=== PATIENT | female | born 1945 | race African-American/Black ===

== ENCOUNTER 2017-06-15 11:35 | Emergency (ER) | payer MEDICARE, MEDICAID ==
--- NOTE | 2017-06-15 13:23 | ULT ---
RIGHT LOWER EXTREMITY VENOUS DOPPLER WITH SPECTRAL ANALYSIS AND COLOR FLOW EVALUATION: DATE: 06/15/17. History Medial right leg pain. FINDINGS: Gonzalez scale, color flow, Doppler evaluation, and spectral analysis of the right lower extremity venous structures is performed with 2D imaging. The right lower extremity, common femoral, superficial fem oral, popliteal, posterior tibial, most proximal greater saphenous, and proximal profunda femoral vei ns are imaged. There is decreased lumen compressibility and absence of flow within the right lower extremity greater saphenous vein consistent with occlusive thrombus in the right lower extremity greater saphenous vei n which extends from the level of the mid calf to the saphenofemoral vein junction. There is normal lumen compressibility, flow, and augmentation in the visualized deep venous structure s of the right lower extremity. IMPRESSION: 1. Occlusive thrombus involving the right lower extremity greater saphenous vein which is a superfic ial vein, and the thrombus extends from the level of the mid calf to the saphenofemoral vein junction . 2. No evidence of a deep vein thrombosis involving the right lower extremity deep venous structures. 3. The above findings were discussed with Dr. Stafford in the emergency department on 06/15/17 at 1232 hours. CODE CR POS: [facility]
== END 2017-06-15 13:17 | disposition home or self-care (01) ==
LOC: ERS 11:35
DX: I82.811 Embolism and thrombosis of superficial veins of right lower extremity (principal); T16.2XXA Foreign body in left ear, initial encounter; I25.10 Atherosclerotic heart disease of native coronary artery without angina pectoris; I42.9 Cardiomyopathy, unspecified; I49.9 Cardiac arrhythmia, unspecified; E66.9 Obesity, unspecified; M19.90 Unspecified osteoarthritis, unspecified site; K21.9 Gastro-esophageal reflux disease without esophagitis; E78.5 Hyperlipidemia, unspecified; I10 Essential (primary) hypertension; F41.9 Anxiety disorder, unspecified
CPT/HCPCS: 69200

== ENCOUNTER 2017-06-24 08:42 | Outpatient (CLI) | payer MEDICARE, MEDICAID ==
--- NOTE | 2017-06-24 10:53 | ULT ---
DOPPLER ARTERIAL EVALUATIONNN OF LOWER EXTREMITIES: INDICATION: Leg pain. FINDINGS: A triphasic-appearing waveform is seen in the common femoral arteries through the level of popliteal arteries. Biphasic-appearing waveforms are seen within the foreleg of the vessel such as the posteri or tibialis bilaterally. Biphasic-appearing waveforms are also seen within the left anterior tibial artery and dorsalis pedis arteries bilaterally. Triphasic waveform is seen within the right anterior tibial artery. Velocity measurements are within normal limits. IMPRESSION: Mild atherosclerotic disease involving the foreleg vascular bilaterally, left greater than right. No hemodynamically significant stenosis demonstrated. POS: [facility]
== END 2017-06-24 08:43 | disposition home or self-care (01) ==
LOC: ULT 08:42
PROVIDERS: ATTEND Nurse Practitioner Family
DX: G25.81 Restless legs syndrome (principal); E11.65 Type 2 diabetes mellitus with hyperglycemia; G62.9 Polyneuropathy, unspecified; M79.7 Fibromyalgia; R51 Headache; R42 Dizziness and giddiness; H40.223 Chronic angle-closure glaucoma, bilateral; I10 Essential (primary) hypertension; K21.0 Gastro-esophageal reflux disease with esophagitis; R76.8 Other specified abnormal immunological findings in serum; E78.2 Mixed hyperlipidemia; M1A.09X0 Idiopathic chronic gout, multiple sites, without tophus (tophi); I70.203 Unspecified atherosclerosis of native arteries of extremities, bilateral legs
CPT/HCPCS: 93923

== ENCOUNTER 2017-10-01 10:12 | Outpatient (CLI) | payer MEDICARE, OTHER ==
--- NOTE | 2017-10-01 10:27 | RAD ---
CHEST TWO VIEWS: History: Pre op. Comparison: 09-12-16 FINDINGS: The heart size is borderline enlarged. Aorta is tortuous. There are atherosclerotic changes. Lungs ar e clear of infiltrates. There is minimal scoliotic change of the spine. IMPRESSION: Borderline to minimal cardiomegaly. No active intrathoracic disease. Stable chest. POS: [facility]
== END 2017-10-01 10:13 | disposition home or self-care (01) ==
LOC: RAD-FRANK 10:12
PROVIDERS: ATTEND Nurse Practitioner Family
DX: Z01.818 Encounter for other preprocedural examination (principal); I82.811 Embolism and thrombosis of superficial veins of right lower extremity; E11.65 Type 2 diabetes mellitus with hyperglycemia; I10 Essential (primary) hypertension
CPT/HCPCS: 71046

== ENCOUNTER 2017-10-05 09:53 | Outpatient (CLI) | payer MEDICARE, OTHER ==
--- NOTE | 2017-10-05 11:45 | RAD ---
LUMBAR SPINE THREE VIEWS: History: Spondylolisthesis. FINDINGS/IMPRESSION: Lateral views of the lumbar spine in flexion, extension, and neutral positions demonstrate grade I an terolisthesis of L4 over L5 without changing position on flexion or extension. POS: [facility]
== END 2017-10-05 09:54 | disposition home or self-care (01) ==
LOC: RAD 09:53
PROVIDERS: ATTEND Specialist
DX: M43.16 Spondylolisthesis, lumbar region (principal)
CPT/HCPCS: 72100

== ENCOUNTER 2017-12-17 12:26 | Inpatient (IN) | payer MEDICARE, MEDICAID ==
[2017-12-17 13:08] LABS: #Eosinphils 0.5 thou/uL (0.0-0.7); #Lymphocytes 2.3 thou/uL (1.20-3.40); #Monocytes 0.7 thou/uL (0.11-0.59); #Neutrophils 6.4 thou/uL (1.40-6.50); %Basophils 0.1 % (0.0-1.0); %Eosinophils 4.9 % (0.0-10.0); %Lymphocytes 23.2 % (21.0-51.0); %Monocytes 6.6 % (0.0-10.0); %Neutrophils 65.1 % (42.0-75.0); Hemoglobin 7.5 g/dL (12.0-16.0); Mean Corpuscular HGB CONC 30.2 g/dL (32.0-36.0); Mean Corpuscular Hemoglobin 23.4 pg (27.0-31.0); Mean Corpuscular Volume 77.5 fl (81.0-99.0); Mean Platelet Volume 7.9 fL (7.4-10.4); Platelet Count 486 thou/uL (130-400); RBC Distribution Width 19.7 % (11.5-14.5); White Blood Cell (WBC) Count 9.8 thou/uL (4.8-10.8)
[2017-12-17 13:40] LABS: Iron 32 ug/dL (50-170); Iron Binding Capacity, Total 391 mcg/dL (265-497)
[2017-12-17 13:43] LABS: ALT (SGPT) 8 U/L (8-55); AST (SGOT) 14 U/L (5-34); Albumin 3.6 g/dL (3.4-4.8); Alkaline Phosphatase 119 U/L (40-150); Anion Gap 13 mmol/L (10-20); BUN (Urea Nitrogen) 18 mg/dL (9.8-20.1); Bilirubin, Total 0.3 mg/dL (0.2-1.2); Calc. Creatinine Clearance 0 mL/min (70-130); Calcium 9.7 mg/dL (7.8-10.44); Carbon Dioxide 24 mmol/L (23-31); Chloride 103 mmol/L (98-107); Estimated GFR-MDRD 47; Glucose 114 mg/dL (83-110); Potassium 3.9 mmol/L (3.5-5.1); Protein, Total 7.6 g/dL (6.0-8.3); Sodium 136 mmol/L (136-145)
[2017-12-17 14:20] LABS: INR-International Normal Ratio 1.2; PTT 31.2 SEC (22.9-36.1); Prothrombin Time 15.8 SEC (12.0-14.7)
[2017-12-17] MEDS ORDERED: Dextrose 5% in Water 1,000 ML IV PRN (16:14)
[2017-12-17] MEDS ORDERED: Dextrose 50% Abboject 50 ML SYRINGE SLOW IVP PRN (16:14)
[2017-12-17] MEDS ORDERED: Acetaminophen 325 MG TAB PO PRN (16:14)
[2017-12-17] MEDS ORDERED: Guaifenesin DM 100-10/5 ML UDCUP PO PRN (16:14)
[2017-12-17] MEDS ORDERED: HumaLOG 300 UNITS/3 ML VIAL SC PRN (16:14)
[2017-12-17] MEDS ORDERED: PROVENTIL INHALER 6.7 G (200 INHALATIONS) INH PRN (16:14)
[2017-12-17 16:39] LABS: Hemoglobin 6.7 g/dL (12.0-16.0)
[2017-12-17 17:52] VITALS: BMI 50.9
--- NOTE | 2017-12-17 18:03 | HP ---
REASON FOR ADMISSION: Likely acute blood loss anemia on Xarelto, possible GI bleed. HISTORY OF PRESENTING ILLNESS: The patient gives history of having routine blood work done with her primary care physician. Her hemoglobin came back at 7 grams. She was asked to go to the emergency room. The patient states she is not taking any pain medications at present and is only on gabapentin. Her stool is slightly more darker than brown per patient. This is not attributed to her starting iron pills from 1 week. She states it was more darker from even before she started taking iron pills. No complaints of abdominal pain, nausea, or vomiting. No juan blood in the stool or vomiting blood. The patient states she has had two prior upper endoscopies done in the past and was found to have had ulcers. She is on Xarelto for right lower extremity clot, which was diagnosed in May of last year. PAST MEDICAL AND SURGICAL HISTORY: Right lower extremity deep venous thrombosis , diagnosed in 05/2017; hypertension; dyslipidemia; diabetes mellitus, type 2; depression; glaucoma; cholecystectomy; hysterectomy; bilateral knee replacement. CURRENT MEDICATIONS: Takes Xarelto 20 mg daily, Dexilant 30 mg daily, gabapentin 800 mg p.o. 3 times daily, metformin 1000 mg twice daily, lisinopril 20 mg daily, Paxil 10 mg daily. ALLERGIES: CODEINE and MOTRIN. PERSONAL HISTORY: Does not abuse alcohol or drugs. No history of smoking. FAMILY HISTORY: Mother at the age of 83 years. Father at the age of 70 years. She thinks they are from natural causes. Code status is FULL. Power of estate planning attorney is her daughter, Ms. Wendy Ballard. REVIEW OF SYSTEMS: The following complete review of systems was negative, unless otherwise mentioned in the HPI or below: Constitutional: Weight loss or gain, ability to conduct usual activities. Skin: Rash, itching. Eyes: Double vision, pain. ENT/Mouth: Nose bleeding, neck stiffness, pain, tenderness. Cardiovascular: Palpitations, dyspnea on exertion, orthopnea. Respiratory: Shortness of breath, wheezing, cough, hemoptysis, fever or night sweats. Gastrointestinal: Poor appetite, abdominal pain, heartburn, nausea, vomiting, constipation, or diarrhea. Genitourinary: Urgency, frequency, dysuria, nocturia. Musculoskeletal: Pain, swelling. Neurologic/Psychiatric: Anxiety, depression. Allergy/Immunologic: Skin rash, bleeding tendency. PHYSICAL EXAMINATION: GENERAL: The patient is a 72-year-old female, who is currently not in any acute distress. VITAL SIGNS: Blood pressure 136/78, pulse 90 per minute, respiratory rate 18 per minute, temperature 97 degrees Fahrenheit, saturating 100% on room air. NECK: Supple, no elevated JVD. HEENT: Eyes: Extraocular muscles intact. Pupils are reacting to light. Oral cavity mucous membranes are moist. No exudates or congestion. CARDIOVASCULAR SYSTEM: S1, S2 heard. Regular rhythm. RESPIRATORY SYSTEM: Air entry 1+ bilateral. No rales or rhonchi. ABDOMEN: Soft, bowel sounds heard. No tenderness, rigidity or guarding. EXTREMITIES: No peripheral edema or calf tenderness. VASCULAR SYSTEM: Peripheral pulses 1+ bilateral, no ischemic ulcerations or gangrene. CENTRAL NERVOUS SYSTEM: No gross focal deficits seen. The patient is alert, awake, and oriented well. PSYCHIATRIC SYSTEM: The patient's mood is euthymic. No hallucinations or delusions. LABORATORY AND X-RAY FINDINGS: White count of 9, H&H is 7.5 and 24, platelet count 486, MCV is 77. Her H&H was 13 and 39 around the same time last year. Her BUN 18, creatinine 1.3. Hemoglobin A1c was 5.5, done yesterday. Serum iron 32, TIBC 391. Ferritin is 21. Albumin is 3.6. CLINICAL IMPRESSION AND PLAN: The patient will be admitted to medical floor for progressive anemia with the patient nearly dropping 5 grams from last year. Her current hemoglobin is around 7 grams. She is on Xarelto for right lower extremity deep venous thrombosis that was diagnosed in May of last year. We will obtain ultrasound of the right lower extremity for now to see if the clot has resolved. We will consult Dr. Gonzalez, who is salesperson meats for Gastroenterology. She will be kept n.p.o. after midnight. Serial H&H q.6 hourly x4 will be obtained. She will be on Protonix 40 mg IV q.12 hourly. The patient has had two upper endoscopies in the past and has never had colonoscopy per patient. She is 72 years old and likely will need one in the outpatient setting if not here. She will be transfused if her hemoglobin drops to less than 7 grams. Code status was discussed with patient and she is a FULL CODE. [facility]
[2017-12-17] MEDS: ALPRAZolam 0.5 MG TAB PO SCH (20:42)
[2017-12-17] MEDS ORDERED: Gabapentin 300 MG CAP PO SCH (21:00)
[2017-12-17] MEDS ORDERED: Gabapentin 400 MG CAP PO SCH (22:00)
[2017-12-17] MEDS: Pantoprazole 40 MG VIAL IVP SCH (22:19)
[2017-12-17] MEDS: Timolol 0.5% Ophth Soln 5 ml Bottle EA EYE SCH (22:26)
[2017-12-17 22:28] LABS: Hemoglobin 6.8 g/dL (12.0-16.0)
[2017-12-17] MEDS: Brimonidine Tartrate 0.2% Ophth Soln 5 ml Bottle EA EYE SCH (22:32)
--- NOTE | 2017-12-17 23:15 | CON ---
DATE OF CONSULTATION: 12/17/2017 HISTORY OF PRESENT ILLNESS: The patient is a 72-year-old -[place] female, who was undergoing routine laboratory tests and her primary care physician was noted to have a hemoglobin of 7. She de nies any NSAID use, any melena, or hematochezia. She does have some lower abdominal pain, which is s omewhat vague and has no alleviating or precipitating factors. She has had some nausea without vomit ing. She has never had any bleeding problems before. She has had an upper endoscopy, which was norm al in the past. Never had a colonoscopy. She was started on Xarelto 6 months ago for lower extremit y DVT and she took her dose last evening. PAST MEDICAL HISTORY: Includes DVT, hypertension, hyperlipidemia, diabetes mellitus, glaucoma. PAST SURGICAL HISTORY: Includes cholecystectomy, hysterectomy, bilateral knee replacements. CURRENT MEDICATIONS: Include Xarelto 20 mg p.o. q. day, Dexilant 30 mg p.o. q. day, gabapentin 800 m g p.o. t.i.d., metformin 1000 mg p.o. b.i.d., lisinopril 20 mg p.o. q. day, Paxil 10 mg p.o. q. day. ALLERGIES: CODEINE and MOTRIN. SOCIAL HISTORY: She does not smoke or drink. FAMILY HISTORY: Significant for a brother who she thinks may have had a colon problem. REVIEW OF SYSTEMS: Constitutional: No fever or chills. Positive for 31-pound weight loss, somewhat purposeful. HEENT: Negative for sore throat or earaches. Cardiovascular: No chest pain or palpit ations. Pulmonary: No shortness of breath, cough or wheezing. Gastrointestinal: See above. Genit ourinary: No hematuria or dysuria. Musculoskeletal: No joint pain or muscle weakness. Skin: No r ashes. Neurologic: No numbness or seizure activity. PHYSICAL EXAMINATION: GENERAL: Shows temperature 97.9, pulse 85, respiratory rate 20, blood pressure 127/60. HEENT: Unremarkable. NECK: Supple. CHEST: Clear. CARDIOVASCULAR: Regular rate and rhythm. ABDOMEN: Soft, nontender, without organomegaly or masses. Bowel sounds present and normoactive. RECTAL: Deferred. EXTREMITIES: Normal. NEUROLOGIC: Nonfocal. LABORATORY DATA: Shows admission hemoglobin 7.5 with MCV of 77.5 and platelet count of 486,000. Rep eat hemoglobin showed 6.7. PT is 15.8 with an INR of 1.2. Chemistries show creatinine 1.35, glucose 114. Iron is 32, TIBC of 391. Ferritin is 21.94. ASSESSMENT: 1. Iron deficiency. 2. Deep venous thrombosis, on Xarelto. 3. Diabetes mellitus. RECOMMENDATIONS: 1. Continue to hold Xarelto. 2. EGD and colonoscopy not tomorrow, but Wednesday secondary to the patient taking Xarelto 24 hours ago . 3. Serial H&H. 4. We would consider transfusion 1 unit packed RBCs.
[2017-12-18 07:30] LABS: Hemoglobin 7.2 g/dL (12.0-16.0)
[2017-12-18 08:10] LABS: Anion Gap 8 mmol/L (10-20); BUN (Urea Nitrogen) 15 mg/dL (9.8-20.1); Calc. Creatinine Clearance 113 mL/min (70-130); Carbon Dioxide 24 mmol/L (23-31); Chloride 110 mmol/L (98-107); Estimated GFR-MDRD 69; Glucose 108 mg/dL (83-110); Potassium 4.2 mmol/L (3.5-5.1); Sodium 138 mmol/L (136-145)
--- NOTE | 2017-12-18 09:19 | ULT ---
BILATERAL LOWER EXTREMITY ULTRASOUND WITH DOPPLER: HISTORY: Swelling. Edema. COMPARISON: None. TECHNIQUE: Gonzalez scale, color flow, Doppler imaging, and spectral waveform analysis was performed of the left and right lower extremity system. FINDINGS: Bilaterally, there is compressibility, presence of flow, and augmentation of the common femoral vein, femoral vein, and popliteal vein. There is flow in bilateral greater saphenous veins, profunda vein , posterior tibial vein, and anterior tibial vein. IMPRESSION: No evidence of thrombus in the left or right lower extremity venous system. POS: [facility]
[2017-12-18] MEDS: ALPRAZolam 0.5 MG TAB PO SCH ×2 (09:30→20:23)
[2017-12-18] MEDS: Gabapentin 400 MG CAP PO SCH ×3 (09:30→21:00)
[2017-12-18] MEDS: Brimonidine Tartrate 0.2% Ophth Soln 5 ml Bottle EA EYE SCH ×2 (09:31→20:27)
[2017-12-18] MEDS: Enoxaparin Sodium 40 MG/0.4 ML SYRINGE SC SCH (09:32)
[2017-12-18] MEDS: Pantoprazole 40 MG VIAL IVP SCH ×2 (09:35→20:26)
[2017-12-18] MEDS: Timolol 0.5% Ophth Soln 5 ml Bottle EA EYE SCH ×2 (09:38→20:23)
[2017-12-18 10:13] LABS: Hemoglobin 7.3 g/dL (12.0-16.0)
--- NOTE | 2017-12-18 10:32 | PDOC.PN ---
- Subjective Encounter Start Date: 12/18/17 Encounter Start Time: 08:25 Subjective: no juan bleeding or sob -: recieved 1 u prbc overnight - Objective Resuscitation Status: Resuscitation Status FULL:Full Resuscitation MAR Reviewed: Yes Vital Signs & Weight: Vital Signs (12 hours) Temp Pulse Pulse Resp BP BP BP 12/18/17 09:38 74 116/60 12/18/17 08:00 98.3 F 73 20 116/59 L 12/18/17 05:27 98.6 F 78 78 18 119/56 L 119/56 L 12/18/17 04:55 98.8 F 18 116/56 L 12/18/17 02:50 98.6 F 75 18 131/60 12/17/17 23:22 98.6 F 75 18 131/60 Pulse Ox 12/18/17 09:38 12/18/17 08:00 95 12/18/17 05:27 92 L 12/18/17 04:55 93 L 12/18/17 02:50 12/17/17 23:22 94 L Weight Weight 296 lb 11.2 oz I&O: 12/17/17 12/18/17 12/19/17 06:59 06:59 06:59 Intake Total 395 480 Balance 395 480 Result Diagrams: 12/18/17 10:07 12/18/17 07:21 Additional Labs: Accuchecks 12/18/17 12/17/17 05:37 20:35 POC Glucose 114 H 98 Phys Exam - Physical Examination HEENT: PERRLA, moist MMs Neck: no nodes, no JVD Respiratory: no wheezing, no rales Cardiovascular: RRR, no significant murmur Gastrointestinal: soft, non-tender, no distention, positive bowel sounds Musculoskeletal: no edema, pulses present Neurological: non-focal, moves all 4 limbs Psychiatric: normal affect, A&O x 3 Dx/Plan (1) Acute blood loss anemia Code(s): D62 - ACUTE POSTHEMORRHAGIC ANEMIA Status: Acute (2) H/O deep venous thrombosis Code(s): Z86.718 - PERSONAL HISTORY OF OTHER VENOUS THROMBOSIS AND EMBOLISM Status: Resolved Comment: h/o right LE dvt resolved now (3) DM type 2 (diabetes mellitus, type 2) Status: Chronic Qualifiers: Diabetes mellitus longterm insulin use: without terminal make up operator use Diabetes mellitus complication status: with unspecified complications Qualified Code(s) : E11.8 - Type 2 diabetes mellitus with unspecified complications (4) HTN (hypertension) Code(s): I10 - ESSENTIAL (PRIMARY) HYPERTENSION Status: Chronic Qualifiers: Hypertension type: essential hypertension Qualified Code(s): I10 - Essential (primary) hypertension (5) Obesity Code(s): E66.9 - OBESITY, UNSPECIFIED Status: Chronic Qualifiers: Obesity classification: adult class 3 (BMI >= 40) Body mass index: BMI 50.0 -59.9 - Plan recieved 1 u prbc overnight, Hb around 7.2g this am -: for colonoscopy and egd in am -: may not need xarelto -: to amb in hallway as tolerated -: d/w pt and daughter in room * . Review of Systems - Medications/Allergies Allergies/Adverse Reactions: Allergies Allergy/AdvReac Type Severity Reaction Status Date / Time codeine Allergy Verified 12/17/17 20:35 ibuprofen Allergy Verified 05/04/14 10:21 tramadol Allergy Verified 12/17/17 20:36 Medications: Current Medications Acetaminophen (Tylenol) 650 mg PO Q4H PRN PRN Reason: Headache/Fever or Pain Albuterol Sulfate (Proventil Hfa) 2 puff INH Q4HR PRN PRN Reason: pt.unsure reason Alprazolam (Xanax) 0.5 mg PO BID [facility] Last Admin: 12/18/17 09:30 Dose: 0.5 mg Brimonidine Tartrate (Alphagan 0.2% Ophth Soln) 1 drop EA EYE BID [facility] Last Admin: 12/18/17 09:31 Dose: 1 drop Dextrose/Water (Dextrose 50%) 25 gm SLOW IVP PRN PRN PRN Reason: Hypoglycemia Enoxaparin Sodium (Lovenox) 40 mg SC 0900 [facility] Last Admin: 12/18/17 09:32 Dose: 40 mg Gabapentin (Neurontin) 800 mg PO TID [facility] Last Admin: 12/18/17 09:30 Dose: 800 mg Glucagon (Glucagon) 1 mg IM PRN PRN PRN Reason: Hypoglycemia Guaifenesin/Dextromethorphan (Robitussin Dm) 15 ml PO Q4H PRN PRN Reason: Cough Dextrose/Water (D5w) 1,000 mls @ 0 mls/hr IV .Q0M PRN; As Directed PRN Reason: Hypoglycemia Insulin Human Lispro (Humalog) 0 units SC .MODERATE SLIDING SC PRN PRN Reason: Moderate Correctional Scale Pantoprazole Sodium (Protonix) 40 mg IVP Q12HR [facility] Last Admin: 12/18/17 09:35 Dose: 40 mg Timolol Maleate (Timoptic 0.5% Ophth Soln) 1 drop EA EYE BID [facility] Last Admin: 12/18/17 09:38 Dose: 1 drp
[2017-12-18] MEDS ORDERED: GoLYTELY 4,000 ml Bottle PO SCH (17:30)
--- NOTE | 2017-12-18 18:10 | PRG ---
DATE OF SERVICE: 12/18/2017 SUBJECTIVE: The patient is without complaints. OBJECTIVE: VITAL SIGNS: Temperature is 97.8, pulse 72, respiratory rate 18, blood pressure 121/65. CHEST: Clear. CARDIOVASCULAR: Regular rate and rhythm without murmurs or gallops. ABDOMEN: Benign. LABORATORY DATA: Hemoglobin 7.3. ASSESSMENT: Iron deficiency anemia. RECOMMENDATIONS: 1. EGD and colonoscopy tomorrow. 2. Hold Xarelto.
[2017-12-19 08:08] LABS: #Basophils 0.1 thou/uL (0.0-0.2); #Eosinphils 0.4 thou/uL (0.0-0.7); #Lymphocytes 1.3 thou/uL (1.20-3.40); #Monocytes 0.5 thou/uL (0.11-0.59); #Neutrophils 5.2 thou/uL (1.40-6.50); %Basophils 0.9 % (0.0-1.0); %Eosinophils 5.1 % (0.0-10.0); %Lymphocytes 17.6 % (21.0-51.0); %Monocytes 6.7 % (0.0-10.0); %Neutrophils 69.7 % (42.0-75.0); Hemoglobin 7.5 g/dL (12.0-16.0); Mean Corpuscular HGB CONC 30.4 g/dL (32.0-36.0); Mean Corpuscular Hemoglobin 24.1 pg (27.0-31.0); Mean Corpuscular Volume 79.3 fl (81.0-99.0); Mean Platelet Volume 8.1 fL (7.4-10.4); Platelet Count 395 thou/uL (130-400); RBC Distribution Width 19.2 % (11.5-14.5); Red Blood Cell (RBC) Count 3.11 mill/uL (4.20-5.40); White Blood Cell (WBC) Count 7.5 thou/uL (4.8-10.8)
[2017-12-19 08:13] LABS: Anion Gap 12 mmol/L (10-20); BUN (Urea Nitrogen) 13 mg/dL (9.8-20.1); Calc. Creatinine Clearance 114 mL/min (70-130); Carbon Dioxide 26 mmol/L (23-31); Chloride 106 mmol/L (98-107); Estimated GFR-MDRD 70; Glucose 96 mg/dL (83-110); Potassium 3.9 mmol/L (3.5-5.1); Sodium 140 mmol/L (136-145)
[2017-12-19] MEDS: Timolol 0.5% Ophth Soln 5 ml Bottle EA EYE SCH (08:22)
[2017-12-19] MEDS: Pantoprazole 40 MG VIAL IVP SCH (08:23)
[2017-12-19] MEDS: Brimonidine Tartrate 0.2% Ophth Soln 5 ml Bottle EA EYE SCH (08:27)
--- NOTE | 2017-12-19 10:14 | PDOC.PN ---
- Subjective Encounter Start Date: 12/19/17 Encounter Start Time: 10:00 Subjective: is resting, drank golytely prep overnight -: no juan bleeding, no sob - Objective Resuscitation Status: Resuscitation Status FULL:Full Resuscitation MAR Reviewed: Yes Vital Signs & Weight: Vital Signs (12 hours) Temp Pulse Resp BP BP Pulse Ox 12/19/17 08:22 77 113/56 L 12/19/17 08:00 97.9 F 77 18 99 12/19/17 07:09 97.9 F 77 18 113/56 L 99 Weight Weight 296 lb 11.2 oz I&O: 12/18/17 12/19/17 12/20/17 06:59 06:59 06:59 Intake Total 395 950 Balance 395 950 Result Diagrams: 12/19/17 07:41 12/19/17 07:41 Additional Labs: Accuchecks 12/19/17 12/18/17 12/18/17 06:06 21:21 16:02 POC Glucose 103 98 105 12/18/17 10:52 POC Glucose 112 H Phys Exam - Physical Examination HEENT: PERRLA, moist MMs Neck: no JVD, supple Respiratory: no wheezing, no rales Cardiovascular: RRR, no significant murmur Gastrointestinal: soft, non-tender, no distention, positive bowel sounds Musculoskeletal: no edema, pulses present Neurological: non-focal, moves all 4 limbs Psychiatric: normal affect, A&O x 3 Dx/Plan (1) Acute blood loss anemia Code(s): D62 - ACUTE POSTHEMORRHAGIC ANEMIA Status: Acute (2) H/O deep venous thrombosis Code(s): Z86.718 - PERSONAL HISTORY OF OTHER VENOUS THROMBOSIS AND EMBOLISM Status: Resolved Comment: h/o right LE dvt resolved now (3) DM type 2 (diabetes mellitus, type 2) Status: Chronic Qualifiers: Diabetes mellitus exterminator insulin use: without fci use Diabetes mellitus complication status: with unspecified complications Qualified Code(s) : E11.8 - Type 2 diabetes mellitus with unspecified complications (4) HTN (hypertension) Code(s): I10 - ESSENTIAL (PRIMARY) HYPERTENSION Status: Chronic Qualifiers: Hypertension type: essential hypertension Qualified Code(s): I10 - Essential (primary) hypertension (5) Obesity Code(s): E66.9 - OBESITY, UNSPECIFIED Status: Chronic Qualifiers: Obesity classification: adult class 3 (BMI >= 40) Body mass index: BMI 50.0 -59.9 - Plan for EGD, colonoscopy today -: no need for anticoagulation with resolved dvt -: h/h holding up -: on protonix q12h -: will f/u, to amb as tolerated * . Review of Systems - Medications/Allergies Allergies/Adverse Reactions: Allergies Allergy/AdvReac Type Severity Reaction Status Date / Time codeine Allergy Verified 12/17/17 20:35 ibuprofen Allergy Verified 05/04/14 10:21 tramadol Allergy Verified 12/17/17 20:36 Medications: Current Medications Acetaminophen (Tylenol) 650 mg PO Q4H PRN PRN Reason: Headache/Fever or Pain Last Admin: 12/18/17 18:34 Dose: 650 mg Albuterol Sulfate (Proventil Hfa) 2 puff INH Q4HR PRN PRN Reason: pt.unsure reason Alprazolam (Xanax) 0.5 mg PO BID [facility] Last Admin: 12/18/17 20:23 Dose: 0.5 mg Brimonidine Tartrate (Alphagan 0.2% Ophth Soln) 1 drop EA EYE BID [facility] Last Admin: 12/19/17 08:27 Dose: 1 drop Dextrose/Water (Dextrose 50%) 25 gm SLOW IVP PRN PRN PRN Reason: Hypoglycemia Enoxaparin Sodium (Lovenox) 40 mg SC 0900 [facility] Last Admin: 12/18/17 09:32 Dose: 40 mg Gabapentin (Neurontin) 800 mg PO TID [facility] Last Admin: 12/18/17 21:00 Dose: Not Given Glucagon (Glucagon) 1 mg IM PRN PRN PRN Reason: Hypoglycemia Guaifenesin/Dextromethorphan (Robitussin Dm) 15 ml PO Q4H PRN PRN Reason: Cough Dextrose/Water (D5w) 1,000 mls @ 0 mls/hr IV .Q0M PRN; As Directed PRN Reason: Hypoglycemia Insulin Human Lispro (Humalog) 0 units SC .MODERATE SLIDING SC PRN PRN Reason: Moderate Correctional Scale Pantoprazole Sodium (Protonix) 40 mg IVP Q12HR [facility] Last Admin: 12/19/17 08:23 Dose: 40 mg Sodium Chloride (Flush - Normal Saline) 10 ml IVF Q12HR [facility] Last Admin: 12/19/17 08:27 Dose: 10 ml Sodium Chloride (Flush - Normal Saline) 10 ml IVF PRN PRN PRN Reason: Saline Flush Last Admin: 12/18/17 20:28 Dose: 10 ml Timolol Maleate (Timoptic 0.5% Oph Soln) 1 drop EA EYE BID [facility] Last Admin: 12/19/17 08:22 Dose: 1 drp
[2017-12-19] MEDS: Enoxaparin Sodium 40 MG/0.4 ML SYRINGE SC SCH (10:15)
[2017-12-19] MEDS: ALPRAZolam 0.5 MG TAB PO SCH (10:15)
[2017-12-19] MEDS: Gabapentin 400 MG CAP PO SCH ×2 (10:15→15:41)
[2017-12-19 14:04] VITALS: BP 118/59; TEMP 98.1
[2017-12-19] MEDS ORDERED: PROPOFOL 200 MG/20 ML VIAL ONE (14:08)
[2017-12-19] MEDS ORDERED: Lidocaine 1% PF 5 ML VIAL ONE (14:08)
[2017-12-19] MEDS ORDERED: PHENYLEPHRINE-NS 100 MCG/ML 10 ML SYRINGE ONE (14:08)
--- NOTE | 2017-12-19 16:00 | OP ---
PREOPERATIVE DIAGNOSIS: Iron deficiency anemia. DATE OF SERVICE: 12/19/2017. PROCEDURE: After informed consent was obtained, the patient placed in the left lateral decubitus pos ition. Anesthesia administered per the Anesthesia Department. Forward-viewing endoscope was inserte d into the esophagus under direct visualization with ease and passed to the second portion of the duo denum with ease. Second portion of duodenum and duodenal bulb were normal. The pylorus, antrum, bod y, fundus, and cardia were normal. Retroflexion in the stomach was normal. Esophagus was normal thr oughout. Random biopsies were taken from the second portion of the duodenum. ASSESSMENT: Normal esophagogastroduodenoscopy. RECOMMENDATIONS: 1. Await histopathology. 2. Proceed with colonoscopy. PROCEDURE: After informed consent was obtained, the patient was placed in left lateral decubitus pos ition. Anesthesia administered per the Anesthesia Department. Forward-viewing endoscope was inserte d into the rectum after perianal inspection and rectal exam were normal and passed to the cecum with ease. The cecum, terminal ileum, ileocecal valve, and appendiceal orifice were normal. The prep was good. The ascending, transverse, descending, sigmoid, and rectum were normal except for a few scatt ered sigmoid diverticula. Retroflexion in rectum showed internal hemorrhoids. ASSESSMENT: 1. Sigmoid diverticulosis coli. 2. Internal hemorrhoids. 3. Otherwise, normal ileal colonoscopy. RECOMMENDATIONS: 1. Begin iron. 2. Okay to resume Xarelto. 3. Consider outpatient capsule endoscopy.
[2017-12-19] MEDS ORDERED: Ferrous Sulfate 325 MG TAB PO SCH (17:00)
--- NOTE | 2017-12-20 00:01 | DIS ---
DATE OF ADMISSION: 12/20/2017 DATE OF DISCHARGE: 12/20/2017 DISCHARGE DISPOSITION: To home. PRIMARY DISCHARGE DIAGNOSES: Acute blood loss anemia, sigmoid diverticulosis, internal hemorrhoids. SECONDARY DISCHARGE DIAGNOSES: History of right lower extremity deep venous thrombosis, now resolved; diabetes mellitus, type 2, hypertension, obesity. PROCEDURES DONE DURING HOSPITALIZATION: Ultrasound venous Doppler of both lower extremities done showed no evidence of DVT. Upper and lower endoscopy done by Dr. Gonzalez on 12/19/2017 showed normal esophagogastroduodenoscopy. There was sigmoid diverticulosis, internal hemorrhoids. Discharge H&H 7.5 and 24 with platelet count of 395. Discharge BUN and creatinine is 13 and 0.9, albumin is 3.6. Serum iron 32, ferritin was 21. DISCHARGE MEDICATIONS: Ferrous sulfate 325 mg p.o. twice daily, Crestor 10 mg daily, paroxetine 20 mg daily, metformin extended-release 1000 mg twice daily, lisinopril with hydrochlorothiazide 20/12.5 mg p.o. twice daily, gabapentin 800 mg p.o. 3 times daily, Dexilant 60 mg p.o. daily, Combigan eyedrops, aspirin 81 mg p.o. daily, albuterol inhaler q.4 hourly p.r.n. ALLERGIES: CODEINE, IBUPROFEN, and TRAMADOL. INPATIENT CONSULTS: Dr. Gonzalez for Gastroenterology. DISCHARGE PLAN: Patient to follow up with primary care physician in 1 week. BRIEF COURSE DURING HOSPITALIZATION: Patient was sent from her primary care physician's office when her hemoglobin came back at 7 grams. She was on Xarelto for right lower extremity DVT. In view of this history, patient was admitted to medical floor. She has had consultation with Dr. Gonzalez for Gastroenterology. Patient was diagnosed with right lower extremity DVT in 2016. A repeat ultrasound done, which showed no evidence of DVT now. She has had upper and lower endoscopies done, the results I have described above. No obvious active bleeding was seen. Her hemoglobin has remained stable around 7 grams at the time of discharge. H&H dropped down to 6.7 and 21 and was given 1 unit of packed cells during her stay here. She has no active bleeding either upper or lower GI tract. She is hemodynamically stable. Patient needs to continue taking ferrous sulfate 325 mg twice daily for at least 3 months to build up her hemoglobin. She is advised to follow up with her primary care physician in 1 week. Please see a [id number] documentation on [facility] for the day of discharge. Please note patient has been advised not to take Xarelto from now as her DVT is resolved. DAVID
== END 2017-12-19 16:18 | disposition home or self-care (01) | DRG 812 ==
LOC: ERS 12:26 → ONC 15:31
PROVIDERS: ADMIT Internal Medicine; ATTEND Internal Medicine
PROC: 30233N1 Transfusion of Nonautologous Red Blood Cells into Peripheral Vein, Percutaneous Approach (ICD-10-PCS; principal; 2017-12-18)
PROC: 0DB98ZX Excision of Duodenum, Via Natural or Artificial Opening Endoscopic, Diagnostic (ICD-10-PCS; 2017-12-19)
PROC: 0DJD8ZZ Inspection of Lower Intestinal Tract, Via Natural or Artificial Opening Endoscopic (ICD-10-PCS; 2017-12-19)
DX: D62 Acute posthemorrhagic anemia (principal); Z68.43 Body mass index [BMI] 50.0-59.9, adult; I10 Essential (primary) hypertension; E78.5 Hyperlipidemia, unspecified; E11.9 Type 2 diabetes mellitus without complications; F32.9 Major depressive disorder, single episode, unspecified; H40.9 Unspecified glaucoma; K64.8 Other hemorrhoids; E66.9 Obesity, unspecified; Z79.84 Long term (current) use of oral hypoglycemic drugs; Z79.01 Long term (current) use of anticoagulants; Z86.718 Personal history of other venous thrombosis and embolism; Z90.49 Acquired absence of other specified parts of digestive tract; Z90.710 Acquired absence of both cervix and uterus; Z96.653 Presence of artificial knee joint, bilateral; K57.30 Diverticulosis of large intestine without perforation or abscess without bleeding
CPT/HCPCS: 36415; 36416; 36430; 80048; 80053; 82274; 82306; 82607; 82728; 82746; 83036; 83520; 83540; 83550; 84550; 85014; 85018; 85025; 85610; 85730; 86038; 86200; 86225; 86850; 86900; 86901; 93005; 93970; 96360; A4216; C9113; J1650; J2001; J2704; P9016

== ENCOUNTER 2018-01-04 15:02 | Outpatient (CLI) | payer MEDICARE, MEDICAID | END 2018-01-04 15:03 | disposition home or self-care (01) | LOC: BICULT 15:02 | PROVIDERS: ATTEND Nurse Practitioner Family | DX: M79.601 Pain in right arm (principal); I82.611 Acute embolism and thrombosis of superficial veins of right upper extremity | CPT/HCPCS: 76999 ==

== ENCOUNTER 2018-01-06 18:27 | Emergency (ER) | payer MEDICARE, MEDICAID ==
[2018-01-06 19:44] LABS: #Basophils 0.1 thou/uL (0.0-0.2); #Eosinphils 0.4 thou/uL (0.0-0.7); #Lymphocytes 1.3 thou/uL (1.20-3.40); #Monocytes 0.6 thou/uL (0.11-0.59); #Neutrophils 4.3 thou/uL (1.40-6.50); %Basophils 0.9 % (0.0-1.0); %Eosinophils 5.4 % (0.0-10.0); %Lymphocytes 19.3 % (21.0-51.0); %Monocytes 9.5 % (0.0-10.0); %Neutrophils 64.9 % (42.0-75.0); Hemoglobin 9.4 g/dL (12.0-16.0); Mean Corpuscular HGB CONC 30.1 g/dL (32.0-36.0); Mean Corpuscular Hemoglobin 24.2 pg (27.0-31.0); Mean Corpuscular Volume 80.7 fl (81.0-99.0); Mean Platelet Volume 8.7 fL (7.4-10.4); Platelet Count 331 thou/uL (130-400); RBC Distribution Width 20.6 % (11.5-14.5); Red Blood Cell (RBC) Count 3.86 mill/uL (4.20-5.40); White Blood Cell (WBC) Count 6.6 thou/uL (4.8-10.8)
[2018-01-06 19:54] LABS: Prothrombin Time 13.7 SEC (12.0-14.7)
[2018-01-06 20:07] LABS: Anion Gap 13 mmol/L (10-20); BUN (Urea Nitrogen) 9 mg/dL (9.8-20.1); Calc. Creatinine Clearance 0 mL/min (70-130); Calcium 9.5 mg/dL (7.8-10.44); Carbon Dioxide 27 mmol/L (23-31); Estimated GFR-MDRD 67; Glucose 109 mg/dL (83-110); Potassium 3.6 mmol/L (3.5-5.1); Sodium 139 mmol/L (136-145)
[2018-01-06 20:19] LABS: Chloride 103 mmol/L (98-107)
--- NOTE | 2018-01-06 20:24 | ULT ---
RIGHT UPPER EXTREMITY: 01/06/18 INDICATIONS: Right upper extremity pain. Recent venous ultrasound from [facility] showed no marisol dence of deep vein thrombosis in the right upper extremity. A superficial thrombus at the wrist was d escribed. TECHNIQUE: The veins of the right upper extremity were evaluated with color doppler, spectral analysis and compr ession. FINDINGS: Today's exam corresponds to the recent ultrasound exam. The right internal jugular vein and right sub clavian vein are patent. The right axillary vein, basilic vein, brachial vein and cephalic vein above the elbow showed no evidence of thrombus. Color doppler and spectral analysis demonstrates normal fl ow. These veins show normal compression. There is thrombus in the superficial cephalic vein at the wrist as described on the recent outside ex am. IMPRESSION: No evidence of thrombus in the deep venous system of the right upper extremity. POS: [facility]
== END 2018-01-06 21:09 | disposition home or self-care (01) ==
LOC: ERS 18:27
DX: I80.8 Phlebitis and thrombophlebitis of other sites (principal); K21.9 Gastro-esophageal reflux disease without esophagitis; E66.9 Obesity, unspecified; E78.5 Hyperlipidemia, unspecified; I10 Essential (primary) hypertension; E11.40 Type 2 diabetes mellitus with diabetic neuropathy, unspecified; F41.9 Anxiety disorder, unspecified; Z79.899 Other long term (current) drug therapy; Z79.84 Long term (current) use of oral hypoglycemic drugs
CPT/HCPCS: 80048; 85025; 85610; 85730; 93005

== ENCOUNTER 2018-01-25 11:37 | Outpatient (CLI) | payer MEDICARE, MEDICAID ==
--- NOTE | 2018-01-25 13:01 | ULT ---
VENOUS DOPPLER ULTRASOUND OF THE RIGHT UPPER EXTREMITY: HISTORY: Cephalic vein thrombosis. TECHNIQUE: Gonzalez scale ultrasound with color flow and spectral Doppler imaging of the deep venous system of the r ight upper extremity is performed. FINDINGS: There is good flow, compression, and normal waveforms in the right internal jugular, subclavian, axil henrry, and brachial, ulnar, radial, basilic, and cephalic veins. IMPRESSION: No evidence of deep venous or cephalic vein thrombosis in the right upper extremity. POS: [facility]
== END 2018-01-25 11:38 | disposition home or self-care (01) ==
LOC: ULT 11:37
PROVIDERS: ATTEND Nurse Practitioner Family
DX: I82.611 Acute embolism and thrombosis of superficial veins of right upper extremity (principal); I80.9 Phlebitis and thrombophlebitis of unspecified site
CPT/HCPCS: 93923

== ENCOUNTER 2019-05-21 10:17 | Emergency (ER) | payer MEDICARE, OTHER ==
--- NOTE | 2019-05-21 11:19 | CT ---
CT ABDOMEN AND PELVIS WITHOUT CONTRAST: Date: 05/21/19 HISTORY: Right-sided abdominal pain. FINDINGS: Comparison made with exam of 12/24/13. Absence of oral and IV contrast reduces the sensitivity of exam, particularly for evaluation of solid organs and bowel. There are mild dependent changes in the lung bases. The patient is post cholecystectomy. Right renal angiomyolipoma is stable. No calculi seen in the kidneys, ureters, or the urinary bladder. No hydrour eteronephrosis is noted on either side. No free air or free fluid is seen in the abdomen or pelvis. There are vascular calcifications without evidence of aneurysmal dilatation of the abdominal aorta. The small bowel loops are not abnormally d ilated. There is colonic diverticulosis without diverticulitis. Degenerative changes are present in t he spine. The patient is post hysterectomy. IMPRESSION: 1. No CT evidence of urinary tract calculi or obstruction. 2. Stable right renal angiomyolipoma. 3. Colonic diverticulosis. POS: [facility]
[2019-05-21 11:23] LABS: #Basophils 0.1 thou/uL (0.0-0.2); #Eosinphils 0.3 thou/uL (0.0-0.7); #Lymphocytes 1.7 thou/uL (1.20-3.40); #Monocytes 0.6 thou/uL (0.11-0.59); #Neutrophils 3.7 thou/uL (1.40-6.50); %Lymphocytes 27.3 % (21.0-51.0); %Monocytes 9.1 % (0.0-10.0); %Neutrophils 58.5 % (42.0-75.0); Hemoglobin 12.3 g/dL (12.0-16.0); Mean Corpuscular HGB CONC 31.2 g/dL (32.0-36.0); Mean Corpuscular Hemoglobin 27.9 pg (27.0-31.0); Mean Corpuscular Volume 89.2 fL (78.0-98.0); Mean Platelet Volume 8.2 fL (7.4-10.4); Platelet Count 280 thou/uL (130-400); RBC Distribution Width 14.7 % (11.5-14.5); Red Blood Cell (RBC) Count 4.41 mill/uL (4.20-5.40); White Blood Cell (WBC) Count 6.3 thou/uL (4.8-10.8)
[2019-05-21 11:43] LABS: ALT (SGPT) 7 U/L (8-55); AST (SGOT) 12 U/L (5-34); Albumin 3.4 g/dL (3.4-4.8); Alkaline Phosphatase 112 U/L (40-110); Anion Gap 10 mmol/L (10-20); BUN (Urea Nitrogen) 19 mg/dL (9.8-20.1); Bilirubin, Total 0.3 mg/dL (0.2-1.2); Calc. Creatinine Clearance 0 mL/min (70-130); Calcium 9.5 mg/dL (7.8-10.44); Carbon Dioxide 29 mmol/L (23-31); Chloride 103 mmol/L (98-107); Estimated GFR-MDRD 49; Globulin 4.1 g/dL (2.4-3.5); Glucose 121 mg/dL (83-110); Potassium 4.3 mmol/L (3.5-5.1); Protein, Total 7.5 g/dL (6.0-8.3); Sodium 138 mmol/L (136-145)
[2019-05-21 12:15] LABS: Bilirubin Negative (Negative); Blood, Urine Negative (Negative); Clarity Clear (Clear); Glucose, Urine (Dipstick) Normal (Negative); Leukocyte Negative Leu/uL (Negative); Nitrite Negative (Negative); Protein, Urine (Dipstick) Negative (Neg-Trace); Urobilinogen Normal mg/dL (Less than 2)
[2019-05-21] MEDS ORDERED: Acetaminophen 500 MG TAB ONE (12:46)
== END 2019-05-21 13:29 | disposition home or self-care (01) ==
LOC: ERS 10:17
DX: R10.9 Unspecified abdominal pain (principal); K21.9 Gastro-esophageal reflux disease without esophagitis; E66.9 Obesity, unspecified; E78.5 Hyperlipidemia, unspecified; E78.00 Pure hypercholesterolemia, unspecified; E11.40 Type 2 diabetes mellitus with diabetic neuropathy, unspecified; M10.9 Gout, unspecified; F41.9 Anxiety disorder, unspecified; Z79.899 Other long term (current) drug therapy; Z79.84 Long term (current) use of oral hypoglycemic drugs; Z79.51 Long term (current) use of inhaled steroids
CPT/HCPCS: 36415; 74176; 80053; 81003; 85025; 96372; J0500

== ENCOUNTER 2020-11-20 08:35 | Outpatient (CLI) | payer MEDICARE, MEDICAID | END 2020-11-20 08:36 | disposition home or self-care (01) | LOC: BICULT 08:35 | PROVIDERS: ATTEND Nurse Practitioner Family | DX: E11.65 Type 2 diabetes mellitus with hyperglycemia (principal); E78.2 Mixed hyperlipidemia; R94.5 Abnormal results of liver function studies; R79.89 Other specified abnormal findings of blood chemistry; I10 Essential (primary) hypertension; D17.71 Benign lipomatous neoplasm of kidney; Z90.49 Acquired absence of other specified parts of digestive tract | CPT/HCPCS: 93975 ==

== ENCOUNTER 2021-07-23 14:11 | Outpatient (CLI) | payer MEDICARE, MEDICAID | END 2021-07-23 14:12 | disposition home or self-care (01) | LOC: ULT 14:11 | PROVIDERS: ATTEND Nurse Practitioner Family | DX: M79.604 Pain in right leg (principal); E66.01 Morbid (severe) obesity due to excess calories; E78.2 Mixed hyperlipidemia; G62.9 Polyneuropathy, unspecified; G89.29 Other chronic pain; M47.816 Spondylosis without myelopathy or radiculopathy, lumbar region; M43.16 Spondylolisthesis, lumbar region | CPT/HCPCS: 72100 ==